=== PATIENT | female | born 1970 | race Hispanic/Latino ===

== ENCOUNTER 2020-11-27 15:34 | Inpatient (IN) | payer BC, OTHER ==
[~2020-11-27] VITALS: Ht 160 cm; Wt 91.2 kg
[2020-11-27] MEDS ORDERED: CEFTRIAXONE SODIUM 1 GM ONE (15:47)
[2020-11-27] MEDS ORDERED: ACETAMINOPHEN EXTRA STRENGTH 500 MG TABLET ONE (15:47)
[2020-11-27] MEDS ORDERED: DEXAMETHASONE SOD PHOSPHATE 10MG/ML 1ML VIAL ONE (15:47)
[2020-11-27] MEDS ORDERED: AZITHROMYCIN 250 MG TABLET PO ONE (15:47)
[2020-11-27] MEDS ORDERED: IPRATROPIUM/ALBUTEROL SULFATE 3 ML SOLUTION IH ONE (15:55)
[2020-11-27 16:18] LABS: ABG HCO3 24.9 mmol/L (21.0-28.0); ABG OXYGEN SATURATION 96.5 % (95.0-99.0); ABG PCO2 31 mmHg (32-45)
[2020-11-27 16:47] LABS: BASOPHILS % (AUTO) 0.2 % (0.0-5.0); LYMPHOCYTES % (AUTO) 19.8 % (21.0-51.0); MEAN CORPUSCULAR HEMOGLOBIN 29.4 pg (27.0-33.0); MEAN CORPUSCULAR HGB CONC 32.6 g/dL (32.0-36.0); MEAN CORPUSCULAR VOLUME 90.1 fL (79-99); MONOCYTES % (AUTO) 2.5 % (3.0-13.0); NEUTROPHILS % (AUTO) 77.1 % (40.0-77.0); PLATELET COUNT (AUTO) 320 K/uL (130-400); RED BLOOD CELL COUNT(AUTO) 4.77 MIL/uL (4.00-5.50); RED CELL DISTRIBUTION WIDTH 14.6 % (11.0-15.5); WHITE BLOOD COUNT (AUTO) 9.9 K/uL (4.8-10.8)
[2020-11-27 17:02] LABS: ALBUMIN 2.3 g/dL (3.5-5.0); BILIRUBIN,TOTAL 0.4 mg/dL (0.2-1.0); CREATININE 0.7 mg/dL (0.5-1.5); TOTAL PROTEIN, SERUM 7.2 g/dL (6.0-8.3)
[2020-11-27 17:14] LABS: B-TYPE NATRIURETIC PEPTIDE 7 pg/mL (0-100)
[2020-11-27 17:46] LABS: CRP QUANTITATIVE 217.5 mg/L (0.00-9.0)
[2020-11-27] MEDS ORDERED: IOHEXOL-350 75 ML VIAL IV ONE ×2 (18:44→19:06)
[2020-11-27] MEDS ORDERED: ONDANSETRON HCL 4 MG/2 ML VIAL IV PRN (19:00)
[2020-11-27] MEDS: CEFTRIAXONE SODIUM 1 GM IVP SCH (19:00)
[2020-11-27] MEDS ORDERED: DOXYCYCLINE 100MG+NS 250ML IV SCH (19:00)
[2020-11-27] MEDS ORDERED: DEXAMETHASONE SOD PHOSPHATE 4 MG/ML 1ML VIAL IVP SCH (19:00)
[2020-11-27] MEDS ORDERED: ERGOCALCIFEROL (VITAMIN D2) 50,000 UNIT CAPSULE PO ONE (19:00)
[2020-11-27] MEDS ORDERED: ACETAMINOPHEN 325 MG TAB PO PRN ×2 (19:00)
[2020-11-27] MEDS ORDERED: FAMOTIDINE/PF 20 MG/2 ML VIAL IV ONE (20:34)
[2020-11-27] MEDS ORDERED: ERGOCALCIFEROL (VITAMIN D2) 50,000 UNIT CAPSULE ONE (20:34)
[2020-11-27] MEDS ORDERED: DOXYCYCLINE 100MG+NS 250ML 250 ML IV ONE (20:34)
[2020-11-27] MEDS: DOXYCYCLINE 100MG+NS 250ML 250 ML IV SCH (21:00)
[2020-11-27] MEDS: FAMOTIDINE/PF 20 MG/2 ML VIAL IV SCH (21:00)
[2020-11-27] MEDS: ACETYLCYSTEINE 600 MG CAPSULE PO SCH (21:00)
[2020-11-27 21:14] VITALS: BP 122/77
[2020-11-27] MEDS ORDERED: POTASSIUM CHLORIDE 10% ELIXIR 20 MEQ/15 ML UDCUP PO PRN (22:00)
[2020-11-27] MEDS ORDERED: LIDOCAINE HCL-MPF 1% 2ML VIAL IV PRN (22:00)
[2020-11-27] MEDS ORDERED: MAGNESIUM 2GM PREMIX 50ML 50 ML IV PRN (22:00)
[2020-11-27] MEDS ORDERED: POTASSIUM CHLORIDE 20MEQ/100ML 100 ML IV PRN (22:00)
[2020-11-27] MEDS ORDERED: SODIUM CHLORIDE 0.9% 500ML 500 ML IV SCH (22:15)
[2020-11-27] MEDS ORDERED: DEXTROSE 50%-WATER 50 ML DISP.SYRIN IV PRN (22:30)
[2020-11-27] MEDS ORDERED: GLUCAGON 1MG KIT 1 MG ML IM PRN (22:30)
[2020-11-27 23:45] VITALS: BP 119/76
[2020-11-27] MEDS: POTASSIUM CHLORIDE 20 MEQ ERTAB PO PRN (23:56)
[2020-11-28 01:43] LABS: APPEARANCE,URINE Clear (CLEAR); BILIRUBIN,URINE Negative (NEGATIVE); COLOR,URINE Yellow (YELLOW); GLUCOSE, URINE (UA) >=1000 mg/dL (NEGATIVE); KETONES,URINE >=160 mg/dL (NEGATIVE); LEUKOCYTE ESTERASE ,URINE Negative (NEGATIVE); NITRATE,URINE Negative (NEGATIVE); OCCULT BLOOD,URINE Negative (NEGATIVE); PH,URINE 5.5 (5.0-8.0); PROTEIN,URINE POS 2+ mg/dL (NEGATIVE)
[2020-11-28 01:52] LABS: BACTERIA,URINE None Seen /HPF (None Seen); RBC,URINE 0-1 /HPF (0-1); SQUAMOUS EPITHELIAL CELL,UR Moderate /HPF (0-2); WBC,URINE None Seen /HPF (0-1); YEAST,URINE BUDDING None Seen /HPF (None Seen)
[2020-11-28] MEDS: POTASSIUM CHLORIDE 20 MEQ ERTAB PO PRN ×2 (03:12→06:13)
[2020-11-28 03:33] VITALS: BP 114/78
[2020-11-28 04:04] LABS: HEMATOCRIT 43.7 % (36-48); LYMPHOCYTES % (AUTO) 24.4 % (21.0-51.0); MEAN CORPUSCULAR HGB CONC 32.3 g/dL (32.0-36.0); MEAN CORPUSCULAR VOLUME 89.7 fL (79-99); PLATELET COUNT (AUTO) 364 K/uL (130-400); RED BLOOD CELL COUNT(AUTO) 4.87 MIL/uL (4.00-5.50); RED CELL DISTRIBUTION WIDTH 14.8 % (11.0-15.5); WHITE BLOOD COUNT (AUTO) 6.5 K/uL (4.8-10.8)
[2020-11-28 04:12] LABS: HEMOGLOBIN A1C 10.5 % (4.0-6.0)
[2020-11-28 04:24] LABS: ALBUMIN 2.3 g/dL (3.5-5.0); BILIRUBIN,TOTAL 0.5 mg/dL (0.2-1.0); CREATININE 0.7 mg/dL (0.5-1.5); MAGNESIUM 2.1 mg/dL (1.80-2.40); POTASSIUM 3.3 mmol/L (3.5-5.1); TOTAL PROTEIN, SERUM 7.4 g/dL (6.0-8.3)
[2020-11-28] MEDS: INSULIN HUMULIN R 100 UNIT/ML 3ML SQ SCH ×4 (06:19→21:00)
[2020-11-28 08:14] VITALS: BP 132/87
[2020-11-28] MEDS ORDERED: SODIUM CHLORIDE 0.9% 250 ML IV ONE (08:26)
[2020-11-28] MEDS: CEFTRIAXONE SODIUM 1 GM IVP SCH (08:58)
[2020-11-28] MEDS: FAMOTIDINE/PF 20 MG/2 ML VIAL IV SCH ×2 (08:58→21:00)
[2020-11-28] MEDS: DOXYCYCLINE 100MG+NS 250ML 250 ML IV SCH (08:59)
[2020-11-28] MEDS: ENOXAPARIN SODIUM 40 MG/0.4 ML SYRINGE SQ SCH (09:01)
[2020-11-28] MEDS: ZINC SULFATE 220 CAPSULE PO SCH (09:02)
[2020-11-28] MEDS: ACETYLCYSTEINE 600 MG CAPSULE PO SCH (09:02)
[2020-11-28] MEDS: ASCORBIC ACID 500 MG TAB PO SCH (09:02)
[2020-11-28] MEDS ORDERED: PHARMACY COMMUNICATION**REMDESIVIR MISC SCH (09:30)
[2020-11-28] MEDS ORDERED: COMPOUND IV REFRIGERATED 1 EACH IVSOLN MISC PRN (09:45)
[2020-11-28] MEDS ORDERED: REMDESIVIR (EUA) 520 200 MG in SODIUM CHLORIDE 0.9% 250 ML IV SCH (09:45)
[2020-11-28] MEDS: BARICITINIB (EUA) 2 MG TABLET PO SCH (10:57)
[2020-11-28 12:01] VITALS: BP 149/89
[2020-11-28 16:15] VITALS: BP 128/86
[2020-11-28 19:15] VITALS: BP 127/72
[2020-11-28] MEDS: DEXAMETHASONE SOD PHOSPHATE 4 MG/ML 1ML VIAL IVP SCH (21:00)
[2020-11-28 23:37] VITALS: BP 126/76
[2020-11-29 04:45] VITALS: BP 113/72
[2020-11-29 05:00] LABS: BASOPHILS % (AUTO) 0.1 % (0.0-5.0); HEMATOCRIT 43.2 % (36-48); LYMPHOCYTES % (AUTO) 19.1 % (21.0-51.0); MEAN CORPUSCULAR HEMOGLOBIN 28.7 pg (27.0-33.0); MEAN CORPUSCULAR HGB CONC 31.7 g/dL (32.0-36.0); MEAN CORPUSCULAR VOLUME 90.4 fL (79-99); MONOCYTES % (AUTO) 3.3 % (3.0-13.0); PLATELET COUNT (AUTO) 421 K/uL (130-400); RED BLOOD CELL COUNT(AUTO) 4.78 MIL/uL (4.00-5.50); RED CELL DISTRIBUTION WIDTH 15.2 % (11.0-15.5); WHITE BLOOD COUNT (AUTO) 8.1 K/uL (4.8-10.8)
[2020-11-29 05:25] LABS: ALBUMIN 2.4 g/dL (3.5-5.0); BILIRUBIN,DIRECT 0.1 mg/dL (0.0-0.3); BILIRUBIN,TOTAL 0.6 mg/dL (0.2-1.0); CREATININE 0.8 mg/dL (0.5-1.5); MAGNESIUM 1.9 mg/dL (1.80-2.40); POTASSIUM 3.7 mmol/L (3.5-5.1); TOTAL PROTEIN, SERUM 7.2 g/dL (6.0-8.3)
[2020-11-29] MEDS: GUAIFENESIN-CODEINE 5 ML SYRUP PO PRN ×2 (07:29→22:04)
[2020-11-29 07:40] VITALS: BP 133/85
[2020-11-29] MEDS: REMDESIVIR LABS MISC SCH (08:00)
[2020-11-29] MEDS: DEXAMETHASONE SOD PHOSPHATE 4 MG/ML 1ML VIAL IVP SCH ×2 (08:22→21:32)
[2020-11-29] MEDS: FAMOTIDINE/PF 20 MG/2 ML VIAL IV SCH ×2 (08:22→21:31)
[2020-11-29] MEDS: ENOXAPARIN SODIUM 40 MG/0.4 ML SYRINGE SQ SCH (08:23)
[2020-11-29] MEDS: ASCORBIC ACID 500 MG TAB PO SCH (08:23)
[2020-11-29] MEDS: ZINC SULFATE 220 CAPSULE PO SCH (08:23)
[2020-11-29] MEDS: INSULIN HUMULIN R 100 UNIT/ML 3ML SQ SCH ×7 (08:25→21:33)
[2020-11-29] MEDS: BARICITINIB (EUA) 2 MG TABLET PO SCH (08:32)
[2020-11-29 11:54] VITALS: BP 148/88
[2020-11-29] MEDS: REMDESIVIR (EUA) 520 100 MG in SODIUM CHLORIDE 0.9% 250 ML IV SCH (12:51)
[2020-11-29 15:59] VITALS: BP 141/85
[2020-11-29 19:39] VITALS: BP 118/83
[2020-11-29] MEDS ORDERED: INSULIN GLARGINE 100 UNITS/ML 10 ML VIAL SQ SCH (21:00)
[2020-11-29 23:18] VITALS: BP 124/96
[2020-11-30 03:33] VITALS: BP 149/86
[2020-11-30 04:32] LABS: BASOPHILS % (AUTO) 0.2 % (0.0-5.0); LYMPHOCYTES % (AUTO) 32.9 % (21.0-51.0); MEAN CORPUSCULAR HEMOGLOBIN 28.8 pg (27.0-33.0); MEAN CORPUSCULAR HGB CONC 31.9 g/dL (32.0-36.0); MEAN CORPUSCULAR VOLUME 90.1 fL (79-99); NEUTROPHILS % (AUTO) 60.9 % (40.0-77.0); PLATELET COUNT (AUTO) 469 K/uL (130-400); RED BLOOD CELL COUNT(AUTO) 4.66 MIL/uL (4.00-5.50); RED CELL DISTRIBUTION WIDTH 14.8 % (11.0-15.5); WHITE BLOOD COUNT (AUTO) 5.8 K/uL (4.8-10.8)
[2020-11-30 04:47] LABS: ALBUMIN 2.3 g/dL (3.5-5.0); BILIRUBIN,TOTAL 0.6 mg/dL (0.2-1.0); CREATININE 0.6 mg/dL (0.5-1.5); CRP QUANTITATIVE 65.8 mg/L (0.00-9.0); POTASSIUM 3.8 mmol/L (3.5-5.1); TOTAL PROTEIN, SERUM 6.9 g/dL (6.0-8.3)
[2020-11-30] MEDS: REMDESIVIR LABS MISC SCH (05:12)
[2020-11-30] MEDS: INSULIN HUMULIN R 100 UNIT/ML 3ML SQ SCH ×7 (06:21→21:12)
[2020-11-30 06:35] LABS: ABG BASE EXCESS 1.3 mmol/L (-2.0-3.0); ABG OXYGEN SATURATION 96.6 % (95.0-99.0); ABG PCO2 41 mmHg (32-45)
[2020-11-30 07:30] VITALS: BP 148/74
[2020-11-30] MEDS: FAMOTIDINE/PF 20 MG/2 ML VIAL IV SCH ×2 (08:03→21:05)
[2020-11-30] MEDS: BARICITINIB (EUA) 2 MG TABLET PO SCH (08:03)
[2020-11-30] MEDS: ASCORBIC ACID 500 MG TAB PO SCH (08:03)
[2020-11-30] MEDS: DEXAMETHASONE SOD PHOSPHATE 4 MG/ML 1ML VIAL IVP SCH ×2 (08:03→21:05)
[2020-11-30] MEDS: ZINC SULFATE 220 CAPSULE PO SCH (08:03)
[2020-11-30] MEDS: ENOXAPARIN SODIUM 40 MG/0.4 ML SYRINGE SQ SCH (08:04)
[2020-11-30] MEDS: INSULIN GLARGINE 100 UNITS/ML 10 ML VIAL SQ SCH ×2 (09:00→21:15)
[2020-11-30] MEDS: LISINOPRIL 5 MG TABLET PO SCH (09:08)
[2020-11-30] MEDS ORDERED: LISI10TA24 PO (09:29)
[2020-11-30] MEDS ORDERED: METF-444 PO (09:29)
[2020-11-30 11:27] VITALS: BP 134/81
[2020-11-30] MEDS: REMDESIVIR (EUA) 520 100 MG in SODIUM CHLORIDE 0.9% 250 ML IV SCH (12:02)
[2020-11-30 15:48] VITALS: BP 127/83
[2020-11-30 18:12] LABS: CRP QUANTITATIVE 45.4 mg/L (0.00-9.0)
[2020-11-30 20:04] VITALS: BP 125/82
[2020-11-30] MEDS: GUAIFENESIN-CODEINE 5 ML SYRUP PO PRN (22:33)
[2020-11-30 23:55] VITALS: BP 127/82
[2020-12-01 03:51] VITALS: BP 138/83
[2020-12-01 04:05] LABS: BASOPHILS % (AUTO) 0.1 % (0.0-5.0); HEMATOCRIT 42.4 % (36-48); LYMPHOCYTES % (AUTO) 24.4 % (21.0-51.0); MEAN CORPUSCULAR HEMOGLOBIN 28.8 pg (27.0-33.0); MEAN CORPUSCULAR HGB CONC 32.5 g/dL (32.0-36.0); MEAN CORPUSCULAR VOLUME 88.3 fL (79-99); MONOCYTES % (AUTO) 4.2 % (3.0-13.0); NEUTROPHILS % (AUTO) 70.6 % (40.0-77.0); PLATELET COUNT (AUTO) 319 K/uL (130-400); RED CELL DISTRIBUTION WIDTH 14.5 % (11.0-15.5); WHITE BLOOD COUNT (AUTO) 7.3 K/uL (4.8-10.8)
[2020-12-01 04:37] LABS: CREATININE 0.5 mg/dL (0.5-1.5); POTASSIUM 3.4 mmol/L (3.5-5.1)
[2020-12-01] MEDS: REMDESIVIR LABS MISC SCH (06:00)
[2020-12-01] MEDS: INSULIN HUMULIN R 100 UNIT/ML 3ML SQ SCH ×7 (06:48→20:55)
[2020-12-01 08:00] VITALS: BP 119/72
[2020-12-01] MEDS: ASCORBIC ACID 500 MG TAB PO SCH (08:33)
[2020-12-01] MEDS: LISINOPRIL 5 MG TABLET PO SCH (08:33)
[2020-12-01] MEDS: ZINC SULFATE 220 CAPSULE PO SCH (08:33)
[2020-12-01] MEDS: BARICITINIB (EUA) 2 MG TABLET PO SCH (08:33)
[2020-12-01] MEDS: ENOXAPARIN SODIUM 40 MG/0.4 ML SYRINGE SQ SCH (08:34)
[2020-12-01] MEDS: FAMOTIDINE/PF 20 MG/2 ML VIAL IV SCH ×2 (08:34→20:51)
[2020-12-01] MEDS: DEXAMETHASONE SOD PHOSPHATE 4 MG/ML 1ML VIAL IVP SCH ×2 (08:34→20:52)
[2020-12-01] MEDS: INSULIN GLARGINE 100 UNITS/ML 10 ML VIAL SQ SCH ×2 (08:35→20:56)
[2020-12-01 11:36] VITALS: BP 97/64
[2020-12-01] MEDS: REMDESIVIR (EUA) 520 100 MG in SODIUM CHLORIDE 0.9% 250 ML IV SCH (13:03)
[2020-12-01 15:49] VITALS: BP 104/73
[2020-12-01 19:53] VITALS: BP 116/75
[2020-12-01] MEDS: GUAIFENESIN-CODEINE 5 ML SYRUP PO PRN (20:51)
[2020-12-01 23:54] VITALS: BP 115/69
[2020-12-02 03:50] LABS: HEMATOCRIT 42.3 % (36-48); MEAN CORPUSCULAR HEMOGLOBIN 29.2 pg (27.0-33.0); MEAN CORPUSCULAR HGB CONC 32.4 g/dL (32.0-36.0); MEAN CORPUSCULAR VOLUME 90.2 fL (79-99); PLATELET COUNT (AUTO) 493 K/uL (130-400); RED BLOOD CELL COUNT(AUTO) 4.69 MIL/uL (4.00-5.50); RED CELL DISTRIBUTION WIDTH 14.5 % (11.0-15.5); WHITE BLOOD COUNT (AUTO) 8.2 K/uL (4.8-10.8)
[2020-12-02 03:51] VITALS: BP 109/71
[2020-12-02 04:20] LABS: ALBUMIN 2.4 g/dL (3.5-5.0); BILIRUBIN,DIRECT 0.1 mg/dL (0.0-0.3); BILIRUBIN,TOTAL 0.6 mg/dL (0.2-1.0); CREATININE 0.6 mg/dL (0.5-1.5); CRP QUANTITATIVE 18.8 mg/L (0.00-9.0); POTASSIUM 3.7 mmol/L (3.5-5.1); TOTAL PROTEIN, SERUM 6.3 g/dL (6.0-8.3)
[2020-12-02 05:18] LABS: BAND NEUTROPHILS % (MANUAL) 1 % (0-2); BASOPHILS % (MANUAL) 1 % (0-2); LYMPHOCYTES % (MANUAL) 26 % (22-44); MAN.DIFF COMMENT-IMPRESSION MANUAL DIFFERENTIAL; MONOCYTES % (MANUAL) 3 % (2-9); SEGMENTED NEUTROPHILS % 69 % (40-70)
[2020-12-02 05:19] LABS: PLATELET MORPHOLOGY COMMENT ADEQUATE
[2020-12-02] MEDS: REMDESIVIR LABS MISC SCH (06:00)
[2020-12-02] MEDS: INSULIN HUMULIN R 100 UNIT/ML 3ML SQ SCH ×7 (06:56→21:40)
[2020-12-02 07:00] VITALS: BP 114/71
[2020-12-02] MEDS: DEXAMETHASONE SOD PHOSPHATE 4 MG/ML 1ML VIAL IVP SCH ×2 (08:11→20:45)
[2020-12-02] MEDS: FAMOTIDINE/PF 20 MG/2 ML VIAL IV SCH ×2 (08:11→20:45)
[2020-12-02] MEDS: BARICITINIB (EUA) 2 MG TABLET PO SCH (08:11)
[2020-12-02] MEDS: LISINOPRIL 5 MG TABLET PO SCH (08:11)
[2020-12-02] MEDS: ZINC SULFATE 220 CAPSULE PO SCH (08:11)
[2020-12-02] MEDS: ASCORBIC ACID 500 MG TAB PO SCH (08:11)
[2020-12-02] MEDS: ENOXAPARIN SODIUM 40 MG/0.4 ML SYRINGE SQ SCH (08:12)
[2020-12-02] MEDS: INSULIN GLARGINE 100 UNITS/ML 10 ML VIAL SQ SCH ×2 (08:13→21:37)
[2020-12-02 11:00] VITALS: BP 112/72
[2020-12-02] MEDS: REMDESIVIR (EUA) 520 100 MG in SODIUM CHLORIDE 0.9% 250 ML IV SCH (13:55)
[2020-12-02 16:00] VITALS: BP 127/89
[2020-12-02 19:23] VITALS: BP 98/60
[2020-12-02] MEDS: GUAIFENESIN-CODEINE 5 ML SYRUP PO PRN (20:55)
[2020-12-02 23:19] VITALS: BP 132/60
[2020-12-03 03:32] VITALS: BP 121/70
[2020-12-03 04:27] LABS: BASOPHILS % (AUTO) 0.1 % (0.0-5.0); HEMATOCRIT 42.5 % (36-48); LYMPHOCYTES % (AUTO) 19.5 % (21.0-51.0); MEAN CORPUSCULAR HEMOGLOBIN 29.7 pg (27.0-33.0); MEAN CORPUSCULAR HGB CONC 32.7 g/dL (32.0-36.0); MEAN CORPUSCULAR VOLUME 90.8 fL (79-99); MONOCYTES % (AUTO) 4.7 % (3.0-13.0); PLATELET COUNT (AUTO) 511 K/uL (130-400); RED BLOOD CELL COUNT(AUTO) 4.68 MIL/uL (4.00-5.50); RED CELL DISTRIBUTION WIDTH 14.5 % (11.0-15.5); WHITE BLOOD COUNT (AUTO) 9.5 K/uL (4.8-10.8)
[2020-12-03 04:42] LABS: ALBUMIN 2.4 g/dL (3.5-5.0); BILIRUBIN,DIRECT 0.1 mg/dL (0.0-0.3); BILIRUBIN,TOTAL 0.7 mg/dL (0.2-1.0); CREATININE 0.7 mg/dL (0.5-1.5); CRP QUANTITATIVE 11.8 mg/L (0.00-9.0); POTASSIUM 3.6 mmol/L (3.5-5.1); TOTAL PROTEIN, SERUM 6.2 g/dL (6.0-8.3)
[2020-12-03] MEDS: REMDESIVIR LABS MISC SCH (06:00)
[2020-12-03 07:00] VITALS: BP 113/75
[2020-12-03] MEDS: INSULIN HUMULIN R 100 UNIT/ML 3ML SQ SCH ×4 (07:02→11:41)
[2020-12-03] MEDS: FAMOTIDINE/PF 20 MG/2 ML VIAL IV SCH (07:54)
[2020-12-03] MEDS: ASCORBIC ACID 500 MG TAB PO SCH (07:54)
[2020-12-03] MEDS: BARICITINIB (EUA) 2 MG TABLET PO SCH (07:54)
[2020-12-03] MEDS: ZINC SULFATE 220 CAPSULE PO SCH (07:54)
[2020-12-03] MEDS: DEXAMETHASONE SOD PHOSPHATE 4 MG/ML 1ML VIAL IVP SCH (07:54)
[2020-12-03] MEDS: LISINOPRIL 5 MG TABLET PO SCH (07:54)
[2020-12-03] MEDS: ENOXAPARIN SODIUM 40 MG/0.4 ML SYRINGE SQ SCH (07:55)
[2020-12-03] MEDS: INSULIN GLARGINE 100 UNITS/ML 10 ML VIAL SQ SCH (08:05)
[2020-12-03 11:00] VITALS: BP 105/63
[2020-12-03] MEDS ORDERED: DEXAMETHASONE 4 MG TAB PO SCH (11:57)
[2020-12-03] MEDS ORDERED: DEXA6TAB PO (13:11)
[2020-12-03] MEDS ORDERED: APIX2.5T PO (13:11)
[2020-12-03] MEDS ORDERED: PANT40TA54 PO (13:11)
== END 2020-12-03 15:45 | disposition home or self-care (01) | DRG 177 ==
LOC: EDH 15:34 → EDHIP 15:35 → 2AH 21:00
PROVIDERS: ADMIT Internal Medicine; ATTEND Internal Medicine
PROC: XW033E5 Introduction of Remdesivir Anti-infective into Peripheral Vein, Percutaneous Approach, New Technology Group 5 (ICD-10-PCS; 2020-11-28)
PROC: XW0DXM6 Introduction of Baricitinib into Mouth and Pharynx, External Approach, New Technology Group 6 (ICD-10-PCS; 2020-11-28)
PROC: 5A0935A Assistance with Respiratory Ventilation, Less than 24 Consecutive Hours, High Flow/Velocity Cannula (ICD-10-PCS; principal; 2020-11-29)
PROC: 5A0935A Assistance with Respiratory Ventilation, Less than 24 Consecutive Hours, High Flow/Velocity Cannula (ICD-10-PCS; 2020-11-30)
DX: U07.1 COVID-19 (principal); J12.82 Pneumonia due to coronavirus disease 2019; J80 Acute respiratory distress syndrome; D68.59 Other primary thrombophilia; I10 Essential (primary) hypertension; E87.6 Hypokalemia; G47.33 Obstructive sleep apnea (adult) (pediatric); E11.65 Type 2 diabetes mellitus with hyperglycemia; D72.810 Lymphocytopenia; E66.9 Obesity, unspecified; K76.0 Fatty (change of) liver, not elsewhere classified; J45.909 Unspecified asthma, uncomplicated; Z68.35 Body mass index [BMI] 35.0-35.9, adult; Z91.19 Patient's noncompliance with other medical treatment and regimen; Z86.16 Personal history of COVID-19
CPT/HCPCS: 36415; 36600; 71045; 71275; 80048; 80053; 80076; 81001; 82550; 82728; 82803; 82948; 83036; 83605; 83615; 83735; 83880; 84145; 84484; 85025; 85378; 86140; 87040; 87071; 87205; 87426; 93005; 94760; G0378; J0696; J1100; J1650; J1815; J3490; J7050; Q9967; U0003

== ENCOUNTER 2020-12-28 19:02 | Observation (INO) | payer OTHER ==
[~2020-12-28] VITALS: Ht 160 cm; Wt 92.8 kg
[~2020-12-28 19:02] MED LIST: APIX2.5T PO; DEXA6TAB PO; LISI10TA24 PO; METF-444 PO; PANT40TA54 PO
[2020-12-28] MEDS ORDERED: 0.9%NACL 10ML VIAL IVP PRN (20:00)
[2020-12-28 20:38] LABS: BASOPHILS % (AUTO) 0.5 % (0.0-5.0); EOSINOPHILS % (AUTO) 0.6 % (0.0-8.0); LYMPHOCYTES % (AUTO) 43.5 % (21.0-51.0); MEAN CORPUSCULAR HEMOGLOBIN 29.9 pg (27.0-33.0); MEAN CORPUSCULAR HGB CONC 32.1 g/dL (32.0-36.0); MEAN CORPUSCULAR VOLUME 93.3 fL (79-99); MONOCYTES % (AUTO) 5.3 % (3.0-13.0); NEUTROPHILS % (AUTO) 49.8 % (40.0-77.0); PLATELET COUNT (AUTO) 459 K/uL (130-400); RED BLOOD CELL COUNT(AUTO) 4.18 MIL/uL (4.00-5.50); RED CELL DISTRIBUTION WIDTH 15.9 % (11.0-15.5); WHITE BLOOD COUNT (AUTO) 10.6 K/uL (4.8-10.8)
[2020-12-28 20:40] VITALS: BP 121/68
[2020-12-28 20:50] LABS: ALBUMIN 3.3 g/dL (3.5-5.0); CREATININE 0.6 mg/dL (0.5-1.5); POTASSIUM 3.1 mmol/L (3.5-5.1)
[2020-12-28 20:51] LABS: INR 0.95 (0.85-1.15); PROTHROMBIN TIME 10.4 SEC (9.6-11.6)
[2020-12-28 20:53] LABS: PARTIAL THROMBOPLASTIN TIME 26.1 SEC (26.3-35.5)
[2020-12-28 21:04] LABS: CREATINE KINASE, TOTAL 55 U/L (21-232); MYOGLOBIN 16 ng/mL (10-92); TROPONIN I < 0.04 ng/mL (0.00-0.06)
[2020-12-28 21:10] LABS: BILIRUBIN,TOTAL 0.4 mg/dL (0.2-1.0); THYROID STIMULATING HORMONE 1.91 uIU/mL (0.36-3.74); TOTAL PROTEIN, SERUM 6.6 g/dL (6.0-8.3)
[2020-12-28] MEDS ORDERED: HYDRALAZINE 20MG/ML VIAL IV PRN (21:15)
[2020-12-28] MEDS ORDERED: 0.9%NACL 1000ML 1,000 ML IV SCH (21:15)
[2020-12-28] MEDS ORDERED: GUAIFENESIN-DM 200/20 MG 10 ML PO PRN (21:15)
[2020-12-28] MEDS ORDERED: MORPHINE 4 MG SYG IV PRN (21:15)
[2020-12-28] MEDS ORDERED: GLUCAGON 1MG KIT 1 MG ML IM PRN (21:15)
[2020-12-28] MEDS ORDERED: LACTULOSE 20 GM/30 ML UDCUP PO PRN (21:15)
[2020-12-28] MEDS ORDERED: DIPHENHYDRAMINE HCL 25 MG CAPSULE PO PRN (21:15)
[2020-12-28] MEDS ORDERED: KCL 20 MEQ ERTAB PO ONE (21:15)
[2020-12-28] MEDS ORDERED: ONDANSETRON 4MG INJ IV PRN (21:15)
[2020-12-28] MEDS ORDERED: DEXTROSE 50%-WATER 50 ML DISP.SYRIN IV PRN (21:15)
[2020-12-28] MEDS ORDERED: ACETAMINOPHEN WITH CODEINE 1 TAB TAB PO PRN (21:15)
[2020-12-28 21:23] LABS: HEMOGLOBIN A1C 9.2 % (4.0-6.0)
[2020-12-28] MEDS ORDERED: GLIM4TAB36 PO (22:08)
[2020-12-28] MEDS ORDERED: CLOT15CR23 TP (22:08)
[2020-12-28] MEDS ORDERED: DAPA10TA PO (22:08)
[2020-12-28] MEDS ORDERED: ASPIRIN 81MG CHEW TAB ONE (22:33)
[2020-12-28] MEDS ORDERED: ENOXAPARIN SODIUM 100 MG/1 ML SQ ONE (22:34)
[2020-12-28] MEDS: NITROGLYCERIN 1GM OINT 1 INCH/1GM TD SCH (22:37)
[2020-12-28 22:55] VITALS: BP 118/75
[2020-12-28] MEDS ORDERED: POTASSIUM CHLORIDE 20MEQ/100ML 100 ML IV PRN ×2 (23:45)
[2020-12-28] MEDS ORDERED: KCL 20 MEQ ERTAB PO PRN (23:45)
[2020-12-28] MEDS ORDERED: LIDOCAINE HCL-MPF 1% 2ML VIAL IV PRN ×2 (23:45)
[2020-12-28] MEDS ORDERED: POTASSIUM CHLORIDE 10% ELIXIR 20 MEQ/15 ML UDCUP PO PRN (23:45)
[2020-12-29] VITALS (11 sets, daily range): BP systolic 113–144; BP diastolic 56–92
[2020-12-29] MEDS: INSULIN HUMULIN R 100 UNIT/ML 3ML SQ SCH ×3 (05:35→16:06)
[2020-12-29] MEDS: NITROGLYCERIN 1GM OINT 1 INCH/1GM TD SCH ×2 (05:36→14:30)
[2020-12-29 07:25] LABS: HEMATOCRIT 39.4 % (36-48); MEAN CORPUSCULAR HEMOGLOBIN 29.1 pg (27.0-33.0); RED BLOOD CELL COUNT(AUTO) 4.33 MIL/uL (4.00-5.50); RED CELL DISTRIBUTION WIDTH 15.9 % (11.0-15.5); WHITE BLOOD COUNT (AUTO) 8.7 K/uL (4.8-10.8)
[2020-12-29 07:47] LABS: BILIRUBIN,TOTAL 0.8 mg/dL (0.2-1.0)
[2020-12-29] MEDS ORDERED: ENOXAPARIN SODIUM 100 MG/1 ML SQ SCH (08:00)
[2020-12-29 08:12] LABS: ALBUMIN 3.4 g/dL (3.5-5.0); CREATININE 0.5 mg/dL (0.5-1.5); TOTAL PROTEIN, SERUM 6.6 g/dL (6.0-8.3)
[2020-12-29] MEDS: ACETAMINOPHEN 325 MG TAB PO PRN ×2 (08:23→18:49)
[2020-12-29] MEDS ORDERED: FAMOTIDINE 20MG VIAL IV SCH (09:00)
[2020-12-29] MEDS ORDERED: METOPROLOL TARTRATE 25 MG TAB PO SCH (09:00)
[2020-12-29] MEDS ORDERED: ASPIRIN 81MG CHEW TAB PO SCH (09:00)
[2020-12-29] MEDS ORDERED: HEPARIN 10,000 UNIT/10ML (1,000 UNIT/ML) VIAL ONE (12:29)
[2020-12-29] MEDS ORDERED: NICARDIPINE 25MG INJ IV ONE (12:29)
[2020-12-29] MEDS ORDERED: NITROGLYCERIN 2 MG VIAL IV ONE (12:30)
[2020-12-29] MEDS ORDERED: MIDAZOLAM HCL 1 MG/ML 2ML VIAL ONE (12:30)
[2020-12-29] MEDS ORDERED: IOHEXOL 350 MG/ML 100ML INFUS..BTL IV ONE (12:30)
[2020-12-29] MEDS ORDERED: FENTANYL CITRATE PF 50 MCG/1 ML 2ML VIAL ONE (12:30)
[2020-12-29] MEDS ORDERED: LIDOCAINE HCL 400MG/20ML VIAL ONE (13:03)
[2020-12-29] MEDS ORDERED: 0.9%NACL 1000ML 1,000 ML IV SCH (13:45)
[2020-12-29] MEDS ORDERED: ISOSORBIDE MONO 30MG SR TAB PO SCH ×2 (14:00)
[2020-12-29] MEDS ORDERED: ATOR10 PO (16:56)
[2020-12-29] MEDS ORDERED: ISOS30TA92 PO (16:56)
[2020-12-29] MEDS ORDERED: ASPI-1005 PO (16:56)
[2020-12-29] MEDS ORDERED: METO25 PO (16:56)
[2020-12-29] MEDS ORDERED: ATORVASTATIN 20 MG TABLET PO SCH (21:00)
== END 2020-12-29 19:55 | disposition home or self-care (01) ==
LOC: EDH 19:02 → INTOOBSV 19:03 → EDHIP 19:03 → 4CH 22:35
PROVIDERS: ADMIT Internal Medicine; ATTEND Internal Medicine
DX: I25.10 Atherosclerotic heart disease of native coronary artery without angina pectoris (principal); R94.31 Abnormal electrocardiogram [ECG] [EKG]; I10 Essential (primary) hypertension; E11.9 Type 2 diabetes mellitus without complications; E87.6 Hypokalemia; Z20.822 Contact with and (suspected) exposure to COVID-19; E78.5 Hyperlipidemia, unspecified; Z86.16 Personal history of COVID-19; Z87.01 Personal history of pneumonia (recurrent); Z79.899 Other long term (current) drug therapy
CPT/HCPCS: 36415 ×2; 71046; 80053 ×2; 80061; 82550; 82948 ×3; 83036; 83874; 84439; 84443; 84484; 85025; 85027; 85610; 85730; 93005 ×3; 93306; 93458; 96360; 96361 ×3; 96372; 99285; C1769; C1894; G0378 ×20; J1644 ×2; J1650; J2250; J3010; J3490 ×3; Q9965; Q9967; 93356; 99156; 99157

== ENCOUNTER → 2022-06-21 | Outpatient (CLI) | payer OTHER ==
[~2022-06-21] MED LIST changes: -APIX2.5T PO; +ASPI-1005 PO; +ATOR10 PO; +CLOT15CR23 TP; -DEXA6TAB PO; +GLIM4TAB36 PO; +ISOS30TA92 PO; +METO25 PO
[2022-06-21 14:45] LABS: ALBUMIN 3.8 g/dL (3.5-5.0); CREATININE 0.5 mg/dL (0.5-1.5); POTASSIUM 4.1 mmol/L (3.5-5.1); TOTAL PROTEIN, SERUM 7.5 g/dL (6.0-8.3)
== END ==
LOC: LAB 13:04
PROVIDERS: ATTEND Physician Assistant
DX: I10 Essential (primary) hypertension (principal); E78.5 Hyperlipidemia, unspecified
CPT/HCPCS: 36415; 80053; 80061

== ENCOUNTER → 2022-10-18 | Outpatient (CLI) | payer OTHER ==
[2022-10-18 12:44] LABS: ALBUMIN 3.9 g/dL (3.5-5.0); CREATININE 0.6 mg/dL (0.5-1.5); POTASSIUM 3.8 mmol/L (3.5-5.1); TOTAL PROTEIN, SERUM 7.2 g/dL (6.0-8.3)
== END | disposition home or self-care (01) ==
LOC: LAB 09:50
PROVIDERS: ATTEND Internal Medicine Cardiovascular Disease
DX: I10 Essential (primary) hypertension (principal); E78.5 Hyperlipidemia, unspecified
CPT/HCPCS: 36415; 80053; 80061

== ENCOUNTER → 2023-03-14 | Outpatient (CLI) | payer BC ==
[2023-03-14 16:40] LABS: ALBUMIN 3.9 g/dL (3.5-5.0); BILIRUBIN,TOTAL 1.2 mg/dL (0.2-1.0); CREATININE 0.5 mg/dL (0.5-1.5); POTASSIUM 3.9 mmol/L (3.5-5.1); TOTAL PROTEIN, SERUM 7.3 g/dL (6.0-8.3)
[2023-03-14 16:44] LABS: HEMOGLOBIN A1C 6.3 % (4.0-6.0)
== END | disposition home or self-care (01) ==
LOC: LAB 11:53
PROVIDERS: ATTEND Physician Assistant
DX: I10 Essential (primary) hypertension (principal); E11.9 Type 2 diabetes mellitus without complications
CPT/HCPCS: 36415; 80053; 80061; 83036

== ENCOUNTER → 2023-10-23 | Outpatient (CLI) | payer BC ==
[2023-10-23 12:38] LABS: ALBUMIN 3.8 g/dL (3.5-5.0); BILIRUBIN,TOTAL 1.4 mg/dL (0.2-1.0); CREATININE 0.6 mg/dL (0.5-1.0); POTASSIUM 4.1 mmol/L (3.5-5.1); TOTAL PROTEIN, SERUM 7.2 g/dL (6.0-8.3)
== END | disposition home or self-care (01) ==
LOC: LAB 09:14
PROVIDERS: ATTEND Physician Assistant
DX: E11.9 Type 2 diabetes mellitus without complications (principal); I10 Essential (primary) hypertension; E78.5 Hyperlipidemia, unspecified
CPT/HCPCS: 36415; 80053; 80061; 83036